=== PATIENT | female | born 1950 | race Two or more races ===

== ENCOUNTER 2020-01-20 19:17 | Inpatient (IN) | payer OTHER ==
[~2020-01-20] VITALS: Ht 154.9 cm; Wt 83.1 kg
[2020-01-20] MEDS ORDERED: cloNIDine HCL 0.1 MG TAB PO ONE (19:30)
[2020-01-20 20:39] LABS: Basophils # (auto) 0 10 ^3/uL (0-0.2); Basophils % (auto) 0.8 % (0.0-2.0); Eosinophils # (auto) 0.1 10 ^3/uL (0-0.8); Eosinophils % (auto) 2.7 % (0.0-7.0); Hematocrit 35.4 % (36.0-46.0); Hemoglobin 11.8 g/dL (12.2-16.2); Lymphocytes # (auto) 1.8 10 ^3/uL (0.4-5.4); Lymphocytes % (auto) 32.3 % (10.0-50.0); Mean Corpuscular Hemoglobin 31.1 pg (28.0-32.0); Mean Corpuscular Hgb Conc. 33.4 g/dL (32.0-36.0); Mean Corpuscular Volume 92.9 fL (80.0-100.0); Monocytes # (auto) 0.4 10 ^3/uL (0-1.3); Monocytes % (auto) 7.3 % (0.0-12.0); Neutrophils # (auto) 3.1 10 ^3/uL (1.6-8.6); Neutrophils % (auto) 56.9 % (37.0-80.0); Platelet Count (auto) 158 10^3/uL (140-450); Red Blood Cells 3.82 10^6/uL (4.0-5.20); Red Cell Distribution Width 15.1 % (11.8-14.3); White Blood Cell 5.5 10^3/uL (4.4-10.8)
[2020-01-20 20:52] LABS: INR 0.98 (0.9-1.15); Partial Thromboplastin Time 28.3 sec (23.64-32.05)
[2020-01-20 20:55] LABS: Albumin 3.1 g/dL (3.4-5.0); Calcium 8.1 mg/dL (8.5-10.1); Magnesium 2.4 mg/dL (1.6-2.6); Potassium 3.6 mmol/L (3.5-5.1)
[2020-01-20 20:57] LABS: BUN/Creatinine Ratio 14.4
[2020-01-20 21:02] LABS: Bilirubin, Total 0.4 mg/dL (0.2-1.0)
[2020-01-20] MEDS ORDERED: SODIUM CHLORIDE 0.9% 1,000 ML IV ONE (22:30)
[2020-01-20] MEDS ORDERED: IOHEXOL 350 MG/ML 100ML IJ ONE (22:32)
[2020-01-21] MEDS ORDERED: AZITHROMYCIN 500MG/ 250ML 250 ML IV ONE (00:30)
[2020-01-21] MEDS ORDERED: cefTRIAXone 1GM/50ML D5W 50 ML IV ONE (00:30)
[2020-01-21] MEDS ORDERED: TEMAZEPAM 15 MG CAP PO PRN (02:45)
[2020-01-21] MEDS ORDERED: LEVOTHYROXINE SODIUM 50 MCG TAB PO ONE (02:45)
[2020-01-21] MEDS ORDERED: ACETAMINOPHEN 325 MG TAB PO PRN (02:45)
[2020-01-21] MEDS ORDERED: methylPREDNISolone SOD SUCC 40 MG/ML VL IV ONE (02:45)
[2020-01-21] MEDS: SODIUM CHLORIDE 0.9% 1,000 ML IV SCH ×3 (03:10→22:43)
--- NOTE | 2020-01-21 04:45 | NUR ---
Telemetry admit from ER YVROSE CONTRERAS admitted to Telemetry unit. Patient oriented to Justine Dent, primary RN, unit, room, bed, and unit policies regarding patient care and visiting hours. Patient now on continuous telemetry monitoring, tele box # [id number] and telemetry reading on arrival to unit is sinus bradycardia 46. Patient placed on bedside oxygen, weighed by bedscale and encouraged to call if they need something. All questions and concerns addressed, patient verbalized understanding. Note:
[2020-01-21 05:00] VITALS: BP 172/69
[2020-01-21] MEDS: metroNIDAZOLE 500MG/100ML 100 ML IV SCH ×3 (06:00→22:39)
[2020-01-21] MEDS: LEVOTHYROXINE SODIUM 50 MCG TAB PO SCH (06:47)
[2020-01-21] MEDS ORDERED: TRAM50TA2 PO (07:09)
[2020-01-21] MEDS ORDERED: IBUP600T27 PO (07:09)
[2020-01-21] MEDS ORDERED: CYCL1TAB18 PO (07:09)
[2020-01-21] MEDS ORDERED: AMLO5TAB15 PO (07:09)
--- NOTE | 2020-01-21 07:45 | NUR ---
OPENING NOTE ASSUMED CARE OF PT. ALERT AND ORIENTED. NO S/S OF SOB/DISTRESS NOTED. BED SET TO LOWEST POSITION/LOCKED. BEDSIDE RAILS UP X2. CALL LIGHT WITH IN REACH. INSTRUCTED PATIENT TO CALL FOR ASSISTANCE. UPDATED PT ON POC. PT VERBALIZED UNDERSTANDING. WILL CONTINUE TO MONITOR Q1HR AND PRN.
[2020-01-21 09:27] VITALS: BP 150/62
[2020-01-21] MEDS: levoFLOXacin 500MG 100 ML IV SCH (09:58)
[2020-01-21] MEDS: amLODIPine BESYLATE 5 MG TAB PO SCH (09:58)
[2020-01-21] MEDS: FAMOTIDINE 20 MG TAB PO SCH ×2 (09:59→22:00)
[2020-01-21] MEDS: ENOXAPARIN SOD 40 MG/0.4 ML SYRINGE SC SCH (09:59)
--- NOTE | 2020-01-21 11:05 | NUR ---
Regarding social service for advance directive in [place]aj[place]. Information was provided to patient.
[2020-01-21 13:00] VITALS: BP 167/76
[2020-01-21] MEDS: HYDROcodone-ACET 5/325MG TAB PO PRN ×2 (13:05→22:44)
[2020-01-21 16:50] VITALS: BP 160/67
--- NOTE | 2020-01-21 19:30 | NUR ---
Opening Shift Note Assumed care of patient, awake and alert. No S/S of distress/SOB or pain. Instructed on POC and to call for assist PRN, will continue to monitor for changes Q1hr and PRN.
[2020-01-21 22:00] VITALS: BP 161/81
[2020-01-21] MEDS: cloNIDine HCL 0.1 MG TAB PO PRN (22:43)
[2020-01-22 04:30] VITALS: BP 138/56
[2020-01-22] MEDS: metroNIDAZOLE 500MG/100ML 100 ML IV SCH ×3 (05:49→23:14)
[2020-01-22 06:04] LABS: Basophils # (auto) 0 10 ^3/uL (0-0.2); Basophils % (auto) 0.7 % (0.0-2.0); Eosinophils # (auto) 0 10 ^3/uL (0-0.8); Eosinophils % (auto) 0.3 % (0.0-7.0); Hematocrit 37.1 % (36.0-46.0); Hemoglobin 12.4 g/dL (12.2-16.2); Lymphocytes # (auto) 1.5 10 ^3/uL (0.4-5.4); Mean Corpuscular Hemoglobin 31.3 pg (28.0-32.0); Mean Corpuscular Hgb Conc. 33.5 g/dL (32.0-36.0); Mean Corpuscular Volume 93.4 fL (80.0-100.0); Monocytes # (auto) 0.5 10 ^3/uL (0-1.3); Monocytes % (auto) 7.8 % (0.0-12.0); Neutrophils # (auto) 4.2 10 ^3/uL (1.6-8.6); Neutrophils % (auto) 67.2 % (37.0-80.0); Platelet Count (auto) 202 10^3/uL (140-450); Red Blood Cells 3.97 10^6/uL (4.0-5.20); White Blood Cell 6.3 10^3/uL (4.4-10.8)
[2020-01-22 06:27] LABS: BUN/Creatinine Ratio 15.4; Calcium 8.5 mg/dL (8.5-10.1); Potassium 3.9 mmol/L (3.5-5.1)
[2020-01-22] MEDS: LEVOTHYROXINE SODIUM 50 MCG TAB PO SCH (06:35)
--- NOTE | 2020-01-22 08:00 | NUR ---
OPENING NOTE ASSUMED CARE OF PATIENT. PT SLEEPING UPON INITIAL ASSESSMENT. NO S/S OF DISTRESS OR SOB AT THIS TIME. SAFETY PRECAUTIONS IN PLACE. WILL CONTINUE TO MONITOR.
[2020-01-22 09:00] VITALS: BP 153/83
[2020-01-22] MEDS: HYDROcodone-ACET 5/325MG TAB PO PRN (09:15)
[2020-01-22] MEDS: ONDANSETRON HCL 4 MG/2 ML VIAL IV PRN (09:54)
[2020-01-22] MEDS: levoFLOXacin 500MG 100 ML IV SCH (09:55)
[2020-01-22] MEDS: amLODIPine BESYLATE 5 MG TAB PO SCH (10:00)
[2020-01-22] MEDS: ENOXAPARIN SOD 40 MG/0.4 ML SYRINGE SC SCH (10:00)
[2020-01-22] MEDS: FAMOTIDINE 20 MG TAB PO SCH ×3 (10:00→23:14)
[2020-01-22] MEDS ORDERED: MORPHINE SULF INJ 2 MG/ML SYRINGE 1ML IV ONE (10:15)
--- NOTE | 2020-01-22 10:30 | NUR ---
ROUNDS Dr Chato Eldridge at bedside for rounds, new orders received and followed through. Patient updated on plan of care with REGINALD Knutson, translating in Greek. Patient verbalized understanding.
[2020-01-22] MEDS: KETOROLAC TROMETH 30 MG/ML 1ML VIAL IV PRN ×2 (10:33→17:36)
[2020-01-22 11:45] LABS: Albumin 3.1 g/dL (3.4-5.0); Calcium 8.4 mg/dL (8.5-10.1); Potassium 4.6 mmol/L (3.5-5.1)
[2020-01-22 11:48] LABS: BUN/Creatinine Ratio 14.9; Bilirubin, Total 0.3 mg/dL (0.2-1.0); Total Protein 7.9 g/dL (6.4-8.2)
[2020-01-22 13:00] VITALS: BP 150/66
--- NOTE | 2020-01-22 13:00 | NUR ---
GI Dr Dalton Ravi at bedside for GI consult, no new orders received. Plan of care discussed with patient, verbalized understanding.
[2020-01-22 17:00] VITALS: BP 158/74
--- NOTE | 2020-01-22 17:43 | NUR ---
IV removal IV DC'd to left wrist due to leaking, with clean sterile technique, catheter fully intact. Pressure dressing applied to site. Patient tolerated well. IV insertion IV access obtained, via clean sterile technique by inserting 20 gauge catheter to the right wrist. IV secured properly. No trauma to site. Patient tolerated procedure well.
[2020-01-22] MEDS: SODIUM CHLORIDE 0.9% 1,000 ML IV SCH (18:37)
--- NOTE | 2020-01-22 19:20 | NUR ---
Opening shift note Assumed care of patient who is A&Ox4, respirations even and non-labored with no s/s of distress or c/o pain. Program Director/Music Director discussed POC with patient who verbalized understanding. IV patent and intact running NS at 75. Bed in lowest locked position with 2 side rails up. Call light within reach. Will continue to monitor Q1hr and PRN.
--- NOTE | 2020-01-22 19:21 | NUR ---
Care endorsed to REGINALD Johnson, night nurse.
--- NOTE | 2020-01-22 20:00 | NUR ---
PATIENTS FAMILY CALLED Discussed POC with patients , Rodolfo after receiving patient's consent.
--- NOTE | 2020-01-22 21:45 | NUR ---
URINE SPECIMEN SENT TO LAB
[2020-01-22 22:00] VITALS: BP 163/57
[2020-01-22 22:48] LABS: Urine WBC None Seen /hpf (0 - 5)
[2020-01-22 23:10] LABS: Urine Bacteria NONE SEEN /hpf (None Seen); Urine Blood Negative /uL (Negative); Urine Specific Gravity 1.006 (1.001-1.035)
[2020-01-23 05:00] VITALS: BP 170/81
[2020-01-23] MEDS: metroNIDAZOLE 500MG/100ML 100 ML IV SCH (05:17)
[2020-01-23] MEDS: cloNIDine HCL 0.1 MG TAB PO PRN (05:18)
[2020-01-23] MEDS: KETOROLAC TROMETH 30 MG/ML 1ML VIAL IV PRN (05:18)
--- NOTE | 2020-01-23 05:20 | NUR ---
Pain/Blood pressure Patient BP 170/81 and c/o back pain 01/14. Administered Toradol 30 mg and Catapres 0.1 mg per EMAR. Will continue to monitor.
[2020-01-23] MEDS: ONDANSETRON HCL 4 MG/2 ML VIAL IV PRN (05:21)
[2020-01-23] MEDS: LEVOTHYROXINE SODIUM 50 MCG TAB PO SCH (05:34)
--- NOTE | 2020-01-23 06:18 | NUR ---
Reassessed Pain and BP Patient stated that she had 0/10 pain. BP 129/61. Will continue to monitor.
--- NOTE | 2020-01-23 07:30 | NUR ---
Closing shift note Patient resting with eyes closed, no s/s of distress or SOB. Endorsed care to day shift RN.
--- NOTE | 2020-01-23 09:06 | NUR ---
AMA Note YVROSE CONTRERAS states they want to leave the hospital Against Medical Advice (AMA). Patient encouraged to stay for further treatment/stabilization. Chente Tierney MD notified of patient's wishes. CN notified. Patient advised of the risks and benefits of leaving AMA. Patient verbalized understanding. Patient encouraged to return to the ER if symptoms do not improve or worsen.
[2020-01-23 09:14] LABS: Hepatitis B Surface Antibody Negative
[2020-01-23 09:52] LABS: Hepatitis A Total Antibody Positive
[2020-01-23 10:54] LABS: Hepatitis A Ab IgM Negative; Hepatitis B Surface Antigen Negative (Negative)
[2020-01-23 10:55] LABS: Hepatitis B Core IgM Negative
[2020-01-23 10:57] LABS: Hepatitis C Antibody Negative (Negative)
[2020-01-23 11:19] LABS: Hepatitis B Core Total AB Positive
== END 2020-01-23 09:00 | disposition left against medical advice (07) | DRG 194 ==
LOC: ER 19:17 → TELE 19:18 → TELE-CENTR 01-21 04:45
PROVIDERS: ADMIT Nurse Practitioner; ATTEND Family Medicine
DX: J18.9 Pneumonia, unspecified organism (principal); I31.3 Pericardial effusion (noninflammatory); E03.9 Hypothyroidism, unspecified; I10 Essential (primary) hypertension; I16.0 Hypertensive urgency; K76.0 Fatty (change of) liver, not elsewhere classified; K81.9 Cholecystitis, unspecified; E66.9 Obesity, unspecified; G89.29 Other chronic pain; Z53.29 Procedure and treatment not carried out because of patient's decision for other reasons; R74.0 Nonspecific elevation of levels of transaminase and lactic acid dehydrogenase [LDH]; Z79.899 Other long term (current) drug therapy; Z68.34 Body mass index [BMI] 34.0-34.9, adult
CPT/HCPCS: 36415; 71045; 71275; 74018; 76705; 78226; 80048; 80053; 80074; 81001; 83735; 83880; 84443; 84484; 85025; 85379; 85610; 85730; 86704; 86706; 86708; 86803; 87040; 87340; 93005; 96365; 96367; G0378; J0696; J1885; J1956; J2405; J3490